=== PATIENT | female | born 2000 | race Caucasian/White ===

== ENCOUNTER 2023-08-16 14:09 | Outpatient (CLI) | payer OTHER, SELFPAY ==
[2023-08-16 19:17] LABS: Hematocrit 40.8 % (37.0-47.0); Hemoglobin 13.1 g/dL (12.0-15.0); Mean Corpuscular HGB Conc 32.1 g/dl (32-36); Mean Corpuscular Hemoglobin 28.9 pg (26-34); Mean Corpuscular Volume 89.9 fl (80-100); Mean Platelet Volume 11.7 fl (7.4-10.4); Platelet Count Result 163 k/mm3 (150-375); Red Blood Count 4.54 M/mm3 (4.2-5.4); Red Cell Distribution Width 12.8 % (11.5-14.5); White Blood Count 2.7 K/mm3 (4.5-10.0)
[2023-08-16 20:33] LABS: Alanine Aminotransferase 10 U/L (6-35); Albumin Level 4.8 g/dL (3.5-5.1); Alkaline Phosphatase 45 U/L (38-126); Anion Gap 11 mmol/L (8-16); Aspartate Amino Transferase 34 U/L (14-36); Bilirubin,Total 0.4 mg/dL (0.2-1.3); Blood Urea Nitrogen 8 mg/dL (7-17); Calcium 9.8 mg/dL (8.4-10.2); Carbon Dioxide 29 mmol/L (22-30); Chloride 99 mmol/L (98-107); Estimated Glomerular Filt Rate > 60; Glucose 88 mg/dL (65-110); Potassium 4.3 mmol/L (3.4-5.0); Sodium 139 mmol/L (137-145)
[2023-08-16 20:52] LABS: Beta HCG Quantitative < 2.39 mIU/ML
== END 2023-08-16 14:10 | disposition home or self-care (01) ==
LOC: ANHGOSHLAB 14:11
PROVIDERS: PCP Family Medicine; Visit Provider Nurse Practitioner
DX: N92.6 Irregular menstruation, unspecified (principal); R53.83 Other fatigue
CPT/HCPCS: 36415; 80053; 84702; 85027

== ENCOUNTER 2025-05-01 15:22 | Outpatient (CLI) | payer OTHER, SELFPAY ==
--- OUTSIDE RECORDS SUMMARY | 2025-05-01 15:26 | XMS_ITS | Clinical Summary ---
Author Organization [facility] Address [address] [place]: Epic Prelude ADT HINA NATARAJAN [address] Care Team Providers Care Maintainer Central Office Name Role Phone Patricia Denny DO Primary Care Provider [phone] Allergies No known active allergies Medications Cetirizine (ZyrTEC) 10 mg Capsule Active ferrous sulfate (Iron, Ferrous Sulfate,) 325 mg (65 mg iron) tablet Take 325 mg by mouth daily. 12/31/2024 Active ascorbic acid, vitamin C, (Vitamin C) 250 mg tablet Take 500 mg by mouth daily. 12/31/2024 Active Active Problems No known active problems Encounters Date Type Department Care Team Description 05/01/2025 3:00 PM CDT Office Visit [facility] Oncology and Hematology - [place] [address] [place] [address] Yoan Telles MD Neutropenia, unspecified type (Primary Dx); Chronic anemia 04/16/2025 External Device Data STL ABSTRACTION Provider, Abstract 04/15/2025 External Device Data STL ABSTRACTION Provider, Abstract 03/18/2025 External Device Data STL ABSTRACTION Provider, Abstract 02/20/2025 External Device Data STL ABSTRACTION Provider, Abstract 02/20/2025 External Device Data STL ABSTRACTION Provider, Abstract 02/19/2025 External Device Data STL ABSTRACTION Provider, Abstract 02/19/2025 External Device Data STL ABSTRACTION Provider, Abstract 02/18/2025 External Device Data STL ABSTRACTION Provider, Abstract from Last 3 Months Immunizations Immunization Administration Dates Next Due (PFIZER)(12 YR UP) COVID-19 VACCINE - EMERGENCY USE AUTHORIZATION, MRNA, [id number](PF) 30 MCG/0.3 ML IM SUSP 01/01/2021,12/11/2020 Family History Medical History Relation Name Comments No Known Problems Father Hypertension Mother Melanoma Mother Breast Cancer Neg Hx Relation Name Status Comments Father Alive Mother Alive Social History Tobacco Use Types Packs/Day Years Used Date Smoking Tobacco: Never Smokeless Tobacco: Never Tobacco Cessation:Counseling Given: Not Answered Alcohol Use Standard Drinks/Week Comments Never 0 (1 standard drink = 0.6 oz pur e alcohol) Comments No Sex and Gender Information Value Date Recorded Sex Assigned at Not on file 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 Gender Identity Not on file Sexual Orientation Not on file Last Filed Vital Signs Vital Sign Reading Time Taken Comments Blood Pressure 131/80 05/01/2025 2:45 PM CDT Pulse 91 05/01/2025 2:45 PM CDT Temperature 36.7 C (98 F) 05/01/2025 2:45 PM CDT Respiratory Rate 14 05/01/2025 2:45 PM CDT Oxygen Saturation 97% 05/01/2025 2:45 PM CDT Inhaled Oxygen Concentration - - Weight 49.7 kg (109 lb 9.6 oz) 05/01/2025 2:45 P M CDT Height 152.4 cm (5') 05/01/2025 2:45 PM CDT Body Mass Index 21.4 05/01/2025 2:45 PM CDT Plan of Treatment Upcoming Encounters Date Type Department Care Team (Late st Contact Info) Description 05/26/2025 4:30 PM CDT Telephone Check Up [facility] Oncology and Hematology - [place] [address] [place] [address] Yoan Telles MD [address] [place] [address] Health Maintenance Due Date Last Done Comments HPV VACCINES (1 - 3-dose series) 2016 DTAP/TDAP/TD VACCINES (1 - Tdap) 2020 HEPATITIS B VACCINES (1 of 3 - 19+ 3-dose series) 2020 CERVICAL CANCER SCREENING 2022 HPV/Cotest (21-29) 2022 PAP SMEAR 2022 COVID-19 Vaccine ( - 2023- season) 06/02/202411/2020, 12/11/2020 Preventative Visit- Commercial 10/02/2024 INFLUENZA VACCINE (#1) 2025 Insurance [employer] OPEN CHOICE PPO [employer] OPEN CHOICE PPO Care Teams Maintainer Central Office Relationship Specialty Start Date End Date Patricia Denny DO [address] [place] [id number] PCP - General Family Practice 12/03/20
--- OUTSIDE RECORDS SUMMARY | 2025-05-01 15:26 | XMS_ITS | Encounter Summary ---
Author Organization [facility] JEREMYJosey Ellis [employer] [facility] Address [address] [place] [address] Care Team Providers Care Drill Sharpener Operator Name Role Phone Patricia Denny DO Primary Care Provider [phone] Reason for Referral * Radiology Services (Routine) - Authorized Specialty Diagnoses / Procedures Referred By Contac t Referred To Contact Diagnoses Neutropenia, unspecified type Procedures US ABDOMEN COMPLETE Yoan Telles MD [email or web address] [place] [address] Phone: tel: fax: Referral ID Status Reason Start Date Expiration Date V isits Requested Visits Authorized [id number] Authorized 05/01/2025 06/01/2026 1 1 Reason for Visit * Reason Comments Establish Care Encounter Details Date Type Department Care Team (Late st Contact Info) Description 05/01/2025 3:00 PM CDT Office Visit [facility] Oncology and Hematology - [place] [address] [address] Yoan Telles MD [email or web address] [place] [address] Neutropenia, unspecified type (Primary Dx); Chronic anemia Social History Tobacco Use Types Packs/Day Years Used Date Smoking Tobacco: Never Smokeless Tobacco: Never Tobacco Cessation:Counseling Given: Not Answered Alcohol Use Standard Drinks/Week Comments Never 0 (1 standard drink = 0.6 oz pur e alcohol) Comments No Sex and Gender Information Value Date Recorded Sex Assigned at Not on file 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 Previous TREATMENT ? Measurable Disease ? Reason for Visit Magy Simms is a 25 y.o. female who was referred for consultation for leukopenia. History of present illness This is a pleasant 25-year-old female who has been in great health except history of seasonal allergies and iron deficiency. She has been taking oral iron once a day. She has been dealing with low white blood cell count for almost 1 year duration. Patient has intermittent lightheadedness and vertigo. Denies any autoimmune disease symptoms including rash and arthralgia. Her weight and appetite stable. Denies any history of liver disease and alcohol consumption. Denies being a vegetarian. Her menstrual bleeding is heavy for the first few days and last for about 5 days duration. She gets frequent flu and sinus infection. She was evaluated by ENT for dizziness and vertigo today as well. Denies any other new complaints. Past Medical History Past Medical History: Diagnosis Date Kidney stones 2020 passes 1 and 1 still in Seasonal allergies Iron deficiency Surgical History Past Surgical History: Procedure Laterality Date HX TYMPANOSTOMY Bilateral 2nd and 7th grade HX WISDOM TEETH EXTRACTION 2019 SC PARTIAL HYMENECTOMY OR REVISION HYMENAL RING N/A 11/28/2023 EXAM UNDER ANESTHESIA, HYMENECTOMY performed by Verónica Huff MD at [facility] OR Medications Current Outpatient Medications Medication Sig Dispense Refill ferrous sulfate (Iron, Ferrous Sulfate,) 325 mg (65 mg iron) tablet Take 325 mg by mouth daily. ascorbic acid, vitamin C, (Vitamin C) 250 mg tablet Take 500 mg by mouth daily. Cetirizine (ZyrTEC) 10 mg Capsule No current facility-administered medications for this visit. Allergies No Known Allergies Immunizations: Immunization History Administered Date(s) Administered ([employer])(12 YR UP) COVID-19 VACCINE - EMERGENCY USE AUTHORIZATION, MRNA, [id number](PF) 30 MCG/0.3 MLIM SUSP 12/11/2020, 01/01/2021 Family History Family History Problem Relation Name Age of Onset No Known Problems Father Hypertension Mother Melanoma Mother Breast Cancer Neg Hx Social History Social History Tobacco Use Smoking status: Never Smokeless tobacco: Never Substance Use Topics Alcohol use: Never Review of Systems Constitutional: Patient did not mention fever; no night sweats; no anorexia; no weight loss; no fatique NEENT: Patient did not mention headache; no change in vision; no change in hearing; no sore throat;no dysphagia Respiratory: Patient did not mention shortness of breath; no pleuritic chest pain; no cough; no hemoptysis Cardiac: Patient did not mention cardiac-like chest pain; no palpitations; no orthopnea; no PND; noDOE Breasts: Patient did not mention tenderness; no masses GI: Patient did not mention abdominal pain; no nausea; no vomiting; no diarrhea; no hematochezia; no melena : Patient did not mention dysuria; no frequency; no hesitancy; no hematuria GROUND MIXER: Musculosketetal: Patient did not mention bone pain; no arthralgia; no joint swelling; no myalgia; Skin: Patient did not mention pruritis; no rash; no petechiae; no ecchymoses Endocrine: Patient did not mention polydipsia; no polyuria; no unusual weight gain Neuro: Patient did not mention headache; no change in vision; no sensory changes; no muscle weakness; no confusion; no seizures, complain of intermittent lightheadedness and vertigo Psych: Patient did not mention anxiety; no depression; Physical Exam Vitals: As per nursing note Constitutional: Well developed, well nourished, no acute distress, non-toxic appearance Teeth and gum. No signs of infection or swelling. Eyes: PERRL, conjunctiva normal HEENT: Atraumatic, external ears normal, nose normal, oropharynx moist, no pharyngeal exudates. no sinus tenderness Neck- normal range of motion, no tenderness, supple Respiratory: No respiratory distress, normal breath sounds, no rales, no wheezing Cardiovascular: Normal rate, normal rhythm, no murmurs, no gallops, no rubs GI: Soft, nondistended, normal bowel sounds, nontender, no splenomegaly, no hepatomegaly, no mass, no rebound, no guarding : No costovertebral angle tenderness Musculoskeletal: No edema, no tenderness, no deformities. Back- no tenderness Integument: Well hydrated, no rash, Digits and nails inspection normal Lymphatic: No lymphadenopathy noted Neurologic: Alert & oriented x 3, CN 2-12 normal, normal motor function, normal sensory function, no focal deficits noted Psychiatric: Speech and behavior appropriate ? labs No results found for this or any previous visit (from the past 24 hours). Labs from December 2024 showed WBC 3.0 hemoglobin 13 MCV 91 platelets 228,000 neutrophil 41% lymphocyte 46% iron 89 saturation 29 ferritin 16 Pathology ? Imaging & Other Studies Performance Status? Assessment / Plan: ? Leukopenia. Patient is a pleasant 25-year-old female with history of seasonal allergies, iron deficiency, kidney stone and intermittent lightheadedness and dizziness who has been dealing with leukopenia for 1 year duration. She denies any history of autoimmune disease. Denies any rash and diarrhea. She gets frequent sinus infection and flu like symptoms. She denies any history of liver disease. Weight and appetite stable. I have reviewed the labs and discussed the differential diagnosis of leukopenia that includes nutritional deficiencies, autoimmune leukopenia, drug-induced leukopenia, infection related leukopenia, liver and spleen disorders, bone marrow disorders and possibilityof benign essential leukopenia. I will order the workup that will include CBC with differential, CMP, DENNIS, flow cytometric analysis for leukemia, iron profile, B12 and folic acid level and abdominal ultrasound. I will see her back in 2 weeks and discuss the findings and further recommendations. I have answered all of the questions the patient satisfaction. Iron deficiency without anemia. She is on iron replacement. Lightheadedness and vertigo. Patient was seen by the ENT and will follow-up with them. Thank you very much for allowing me to participate in Magy Simms's evaluation and management. Please feel free to contact if I can be of any further assistance in your patient???s care requiring hematology or oncology evaluation. Sincerely, ? ? Yoan Telles M.D. cell TOBACCO COUNSELING She is not a tobacco/nicotine user. Yoan Telles MD ,05/01/2025 3:16 PM ? Total time spent 60 minutes, two third of the total time spent counseling patient [id number]. CC:?Patricia Denny DO documented in this encounter Plan of Treatment Upcoming Encounters Date Type Department Care Team (Late st Contact Info) Description 05/26/2025 4:30 PM CDT Telephone Check Up [facility] Oncology and Hematology - [place] [address] [facility] [address] [place] [address] Yoan Telles MD [address] [facility] [address] [place] [address] Scheduled Orders Name Type Priority Associated Diagnoses Orde r Schedule CBC WITH DIFFERENTIAL Lab Stat Chronic anemia Expected: 05/01/2025, Expires: 05/01/2026 DENNIS SCREEN W/REFLEX Lab Routine Neutropenia, unspecified type Expected: 05/01/2025, Expires: 05/01/2026 COMPREHENSIVE METABOLIC PANEL Lab Stat Chronic anemia Expected: 05/01/2025, Expires: 05/01/2026 FLOW CYTOMETRY PANEL Lab Routine Neutropenia, unspecified type Expected: 05/01/2025, Expires: 05/01/2026 IRON, TIBC, AND PERCENT SATURATION Lab Routine Chronic anemia Expected: 05/01/2025, Expires: 05/01/2026 VITAMIN B12 AND FOLATE Lab Routine Chronic anemia Expected: 05/01/2025, Expires: 05/01/2026 FERRITIN Lab Routine Chronic anemia Expected: 05/01/2025, Expires: 05/01/2026 US ABDOMEN COMPLETE Imaging Routine Neutropenia, unspecified type 1 Occurrences starting 05/01/2025 until 05/01/2026 documented as of this encounter Visit Diagnoses Diagnosis Neutropenia, unspecified type- Primary Chronic anemia Anemia, unspecified documented in this encounter Care Teams Drill Sharpener Operator Relationship Specialty Start Date End Date Patricia Denny DO [address] [place] [address] PCP - General Family Practice 12/03/20 documented as of this encounter
--- NOTE | 2025-05-01 15:36 | CY_PTH ---
PATIENT: Magy Simms LOC: [facility] U#:[id number] AGE/SX: 25/F ROOM: RE05/01/[address]: Yoan Telles MD : [id number] BED: DIS: 05/01/2025 SPEC #: [id number] RECD: 05/02/25 06:52 STATUS: BEATRIZ REQ #: [id number] CINTHIA: 05/01/25 15:[address]: Yoan Telles DEPT: [facility] Cytology RECD BY: Mercedes Coronel ENTERED: 05/02/25 06:52 SP TYPE: Cytology OTHR DR: Patricia Denny DO Tissues: A - Flow Procedures: Flow Cytometry
[2025-05-01 15:38] LABS: Hematocrit 40.2 % (37.0-47.0); Hemoglobin 13.5 g/dL (12.0-15.0); Immature Granulocyte Percent A 0.2 % (0-0.5); Lymphocytes Absolute Auto 1.69 K/mm3 (0.9-3.2); Mean Corpuscular HGB Conc 33.6 g/dl (32-36); Mean Corpuscular Hemoglobin 30.2 pg (26-34); Mean Corpuscular Volume 89.9 fl (80-100); Nucleated Red Blood Cells Absolute Auto 0.000 K/mm3 (0.0-0.012); Nucleated Red Blood Cells Perc 0.0 % (0.0-0.2); Platelet Count Result 220 k/mm3 (150-375); Red Blood Count 4.47 M/mm3 (4.2-5.4); White Blood Count 6.1 K/mm3 (4.5-10.0)
[2025-05-01 16:27] LABS: Alanine Aminotransferase 12 U/L (6-35); Albumin Level 5.0 g/dL (3.5-5.1); Alkaline Phosphatase 66 U/L (38-126); Anion Gap 9 mmol/L (4-12); Aspartate Amino Transferase 44 U/L (14-36); Bilirubin,Total 0.5 mg/dL (0.2-1.3); Blood Urea Nitrogen 10 mg/dL (7-17); Calcium 10.2 mg/dL (8.4-10.2); Carbon Dioxide 26 mmol/L (22-30); Chloride 100 mmol/L (98-107); Estimated Glomerular Filt Rate > 60; Glucose 97 mg/dL (65-110); Iron 101 ug/dL (37-170); Potassium 4.2 mmol/L (3.4-5.0); Sodium 135 mmol/L (137-145); Total Protein 9.1 g/dL (6.3-8.2)
[2025-05-01 16:37] LABS: Percent Iron Saturation 33 % (20-50)
[2025-05-01 17:10] LABS: Ferritin 34.30 ng/mL (6.24-137)
[2025-05-01 17:40] LABS: Vitamin B12 376.0 pg/mL (239-931)
[2025-05-05 07:07] LABS: ANA by IFA Rfx Titer/Pattern Negative (.)
== END 2025-05-01 15:23 | disposition home or self-care (01) ==
LOC: ANHLAB 15:23
PROVIDERS: PCP Family Medicine; Visit Provider Internal Medicine Hematology & Oncology
DX: D70.9 Neutropenia, unspecified (principal); D64.9 Anemia, unspecified
CPT/HCPCS: 36415; 80053; 82607; 82728; 82746; 83540; 83550; 85025; 86038; 88184

== ENCOUNTER 2025-05-19 07:50 | Outpatient (CLI) | payer OTHER, SELFPAY ==
--- NOTE | ~2025-05-19 | US_ITS ---
Abdominal Sonogram: Real-time sonographic imaging of the abdomen was performed. Clinical History: Neutropenia Findings: The liver appears normal with no evidence of mass lesion or bile duct dilatation. Main por margie vein demonstrates normal direction of flow. The spleen is normal in size without evidence of foca l lesion. The gallbladder is well distended, and appears normal with no evidence of gallstone or wal l thickening. The common bile duct measures 2 mm. The visualized pancreas, aorta, and IVC are unrema rkable. The right kidney measures 10.4 cm in length and the left kidney measures 9.9 cm. There is n o hydronephrosis or renal calculus. Impression: Unremarkable abdominal ultrasound. Reviewed, dictated and finalized at location M. Impression: Unremarkable abdominal ultrasound.
== END 2025-05-19 07:51 | disposition home or self-care (01) ==
PROVIDERS: PCP Family Medicine; Visit Provider Internal Medicine Hematology & Oncology
DX: D70.9 Neutropenia, unspecified (principal)
CPT/HCPCS: 76700

== ENCOUNTER 2025-09-24 09:07 | Outpatient (CLI) | payer OTHER, SELFPAY ==
--- NOTE | ~2025-09-24 | CT_ITS ---
EXAMINATION: CT brain wo con DATE: 09/24/2025 09:20 INDICATION: Benign paroxysmal vertigo, unspecified ear. TECHNIQUE: Computed tomography (CT) of the head was performed without intravenous contrast. The mA was adjusted according to patient size. Iterative reconstruction technique was employed. The dose-length product was 529.67 mGy-cm. COMPARISON: None FINDINGS: There is no intracranial hemorrhage, acute infarction, or abnormal intracranial mass lesion. The ventricles are normal in size. The paranasal sinuses are clear. The mastoid air cells are normal. IMPRESSION: 1. Normal brain. Reviewed, dictated and finalized at location E. F CREW SCHEDULER IMPRESSION: 1. Normal brain.
--- OUTSIDE RECORDS SUMMARY | 2025-09-24 09:11 | XMS_ITS | Clinical Summary ---
Author Organization [facility] Address [address] [facility] [place] [address] Care Team Providers Care Machine Pack Assembler Name Role Phone Patricia Denny DO Primary Care Provider [phone] Source Comments [facility],non-owned Affiliates and Associated Physician Practices is amultiple site organization consisting of ambulatory clinics and hospital sitesin [place], [place], [place] and [place]. This disclosure is being madepursuant to the Care Everywhere program and may not contain all information available regarding this patient. Last updated 18.[facility] Health Encounters Date Type Department Care Team Description 07/24/2025 Travel from Last 3 Months Social History Tobacco Use Types Packs/Day Years Used Date Smoking Tobacco: Never Assessed Comments Unknown Sex and Gender Information Value Date Recorded Sex Assigned at Not on file Legal Sex Female 9:24 AM CDT Gender Identity Not on file Sexual Orientation Not on file Plan of Treatment Upcoming Encounters Date Type Department Care Team (Late st Contact Info) Description 10/01/2025 11:00 AM METAL WASHING MACHINE OPERATOR Office Visit [facility] - Neurology [address] [place] [address], [place] [phone] Jesus Ken, INVESTMENT EXECUTIVE-AERODYNAMICS ENGINEER [address] [place] [address] [place] [address] Health Maintenance Due Date Last Done Comments HIV SCREENING 2016 HPV VACCINE (1 - 3-dose series) 2016 CHLAMYDIA/GONORRHEA SCREENING 2017 HEPATITIS C SCREENING 02/26/2019 DTAP/TDAP/TD VACCINES (1 - Tdap) 2020 HEPATITIS B VACCINE (1 of 3 - 19+ 3-dose series) 2020 PAP SMEAR 2022 DEPRESSION SCREENING 10/02/2024 COVID-19 VACCINE (1 - 2024-2 6 season) 2025 INFLUENZA VACCINE (#1) 2025 ZOSTER VACCINE (1 of 2) 2051 HIB VACCINE Aged Out No longer eligi ble based on patient's age to complete this topic MENINGOCOCCAL (Group B) VACC INE SHARED DECISION-MAKING Aged Out No longer eligibl e based on patient's age to complete this topic MENINGOCOCCAL GROUPS A/C/Y/W VACCINE Aged Out No longer eligible b ased on patient's age to complete this topic PNEUMOCOCCAL VACCINE Aged Out No long er eligible based on patient's age to complete this topic Insurance AETNA Care Teams Machine Pack Assembler Relationship Specialty Start Date End Date Patricia Denny DO [address] [place] [address] PCP - General Family Medicine 07/24/25
--- OUTSIDE RECORDS SUMMARY | 2025-09-24 09:11 | XMS_ITS | Clinical Summary ---
Author Organization [facility] Address [address] Attn: [place] [address] Care Team Providers Care Supervisor Elementary Education Name Role Phone Patricia Denny DO Primary Care Provider [phone] Allergies No known active allergies Medications Cetirizine (ZyrTEC) 10 mg Capsule Active ferrous sulfate (Iron, Ferrous Sulfate,) 325 mg (65 mg iron) tablet Take 325 mg by mouth daily. 12/31/2024 Active ascorbic acid, vitamin C, (Vitamin C) 250 mg tablet Take 500 mg by mouth daily. 12/31/2024 Active magnesium OXIDE 250 mg magnesium Tablet Take 200 mg by mouth daily. Active Active Problems No known active problems Encounters Date Type Department Care Team Description 09/16/2025 External Device Data STL ABSTRACTION Provider, Abstract 09/08/2025 3:30 PM NETWORK ENGINEERING ADVISOR Office Visit [facility] Oncology and Hematology - [place] [address] [place] [id number] Yoan Telles MD Neutropenia, unspecified type (Primary Dx) 09/02/2025 Orders Only Initial Department [address] JSOEPH: [place] [address] Provider, Historical Neutropenia, unspecified type 07/22/2025 External Device Data STL ABSTRACTION Provider, Abstract from Last 3 Months Immunizations Immunization Administration Dates Next Due (PFIZER)(12 YR UP) COVID-19 VACCINE - EMERGENCY USE AUTHORIZATION, MRNA, [id number](PF) 30 MCG/0.3 ML IM SUSP 01/01/2021,12/11/2020 Family [...] drink = 0.6 oz pur e alcohol) Feeling Safe Answer Date Recorded Are you in a relationship wi th someone who hurts you emotionally and/or physically? No 11/28/2023 Comments No Sex and Gender Information Value Date Recorded Sex Assigned at Not on file Legal Sex Female 11:28 PM NETWORK ENGINEERING ADVISOR Gender Identity Not on file Sexual Orientation Not on file Last Filed Vital Signs Vital Sign Reading Time Taken Comments Blood Pressure 115/70 09/08/2025 3:26 PM NETWORK ENGINEERING ADVISOR Pulse 86 09/08/2025 3:26 PM NETWORK ENGINEERING ADVISOR Temperature 36.7 C (98.1 F) 09/08/2025 3:26 PM NETWORK ENGINEERING ADVISOR Respiratory Rate 14 05/01/2025 2:45 PM CDT Oxygen Saturation 98% 09/08/2025 3:26 PM NETWORK ENGINEERING ADVISOR Inhaled Oxygen Concentration - - Weight 49.4 kg (108 lb 12.8 oz) 09/08/2025 3:26 PM NETWORK ENGINEERING ADVISOR Height 152.4 cm (5') 05/01/2025 2:45 PM CDT Body Mass Index 21.25 05/01/2025 2:45 PM CDT Plan of Treatment Health Maintenance Due Date Last Done Comments HPV VACCINES (1 - 3-dose series) 2016 DTAP/TDAP/TD VACCINES (1 - Tdap) 2020 HEPATITIS B VACCINES (1 of 3 - 19+ 3-dose series) 2020 CERVICAL CANCER SCREENING 2022 HPV/Cotest (21-29) 2022 PAP SMEAR 2022 INFLUENZA VACCINE (#1) 2025 COVID-19 Vaccine ( - season) 06/02/202511/2020, 12/11/2020 Procedures Procedure Name Priority Date/Time Associated Diagnosis Comments VITAMIN B12 AND FOLATE Routine 11:13 AM NETWORK ENGINEERING ADVISOR Neutropenia, unspecified type COMPREHENSIVE METABOLIC PANEL Routine 09/02/2025 11:13 AM NETWORK ENGINEERING ADVISOR CBC WITH DIFFERENTIAL Routine 09/02/2025 11:13 AM NETWORK ENGINEERING ADVISOR from Last 3 Months Results * VITAMIN B12 AND FOLATE (09/02/2025 11:13 AM NETWORK ENGINEERING ADVISOR) Pathologist [facility] [place] VITAMIN B12 600 200 - 1100 pg/mL [facility] FOLATE, SERUM 14.0 ng/mL [facility] Comment: Reference Range Low: <3.4 Borderline: 3.4-5.4 Normal: >5.4 FASTING:YES Test Performed at: [facility] [address] [place] [phone] Vicki Mortensen MD, PhD Blood 09/02/2025 11:1 3 AM NETWORK ENGINEERING ADVISOR 09/02/2025 11:14 AM NETWORK ENGINEERING ADVISOR us Yoan Telles MD CHEMISTRY ORDERABLES Final Resu lt [facility] [phone] [facility] [address] [place] [phone] * CBC WITH DIFFERENTIAL (09/02/2025 11:13 AM NETWORK ENGINEERING ADVISOR) Pathologist [facility] [place] WBC 3.9 3.8 - 10.8 Thousand/u L [facility] RBC 4.69 3.80 - 5.10 Million/uL [facility] HEMOGLOBIN 14.3 11.7 - 15.5 g/dL [facility] HEMATOCRIT 43.2 35.9 - 46.0 % [facility] MCV 92.1 81.4 - 101.7 fL [facility] MCH 30.5 27.0 - 33.0 pg [facility] MCHC 33.1 31.6 - 35.4 g/dL [facility] Comment: For adults, a slight decrease in the calculated MCHC value (in the range of 30 to 32 g/dL) is most likely not clinically significant; however, it should be interpreted with caution in correlation with other red cell parameters and the patient's clinical condition. RDW 11.8 11.0 - 15.0 % [facility] PLATELETS 211 140 - 400 Thousand/u L [facility] MPV 11.3 7.5 - 12.5 fL [facility] NEUTROPHIL ABSOLUTE 1,845 1,500 - 7,800 cells/uL [facility] LYMPHOCYTE ABSOLUTE 1,677 850 - 3,900 cells/uL [facility] MONOCYTE ABSOLUTE 308 200 - 950 cells/uL [facility] EOSINOPHIL ABSOLUTE 39 15 - 500 cells/uL [facility] BASOPHILS ABSOLUTE 31 0 - 200 cells/uL [facility] NEUTROPHIL 47.3 % [facility] LYMPHOCYTES 43.0 % [facility] MONOCYTE 7.9 % [facility] EOSINOPHILS 1.0 % [facility] BASOPHILS 0.8 % [facility] Comment: FASTING:YES Test Performed at: [facility] [address] [place] [address] Vicki Mortensen MD, PhD 09/02/2025 11:1 3 AM NETWORK ENGINEERING ADVISOR 09/02/2025 11:14 AM NETWORK ENGINEERING ADVISOR us Yoan Telles MD HEMATOLOGY ORDERABLES Final Res ult [facility] [phone] [facility] [address] [place] [address] * (ABNORMAL) COMPREHENSIVE METABOLIC PANEL (09/02/2025 11:13 AM NETWORK ENGINEERING ADVISOR) GLUCOSE 89 65 - 99 mg/dL [facility] Comment: Fasting reference interval BUN 17 7 - 25 mg/dL [facility] CREATININE 0.72 0.50 - 0.96 mg/dL [facility] GFR 120 > OR = 60 mL/min/1. 73m2 [facility] BUN/CREAT RATIO SEE NOTE: 6 - 22 (calc) [facility] Comment: Not Reported: BUN and Creatinine are within reference range. SODIUM 139 135 - 146 mmol/L [facility] POTASSIUM 4.3 3.5 - 5.3 mmol/L [facility] CHLORIDE 103 98 - 110 mmol/L [facility] CO2 27 20 - 32 mmol/L [facility] CALCIUM 9.8 8.6 - 10.2 mg/dL [facility] TOTAL PROTEIN 8.3(H) 6.1 - 8.1 g/dL [facility] ALBUMIN 4.9 3.6 - 5.1 g/dL [facility] GLOBULIN 3.4 1.9 - 3.7 g/dL (calc) [facility] ALBUMIN/GLOBULIN RATIO 1.4 1.0 - 2.5 (calc) [facility] BILIRUBIN TOTAL 0.4 0.2 - 1.2 mg/dL [facility] ALKALINE PHOSPHATASE 47 31 - 125 U/L [facility] AST 16 10 - 30 U/L [facility] ALT 8 6 - 29 U/L [facility] Comment: FASTING:YES Test Performed at: [facility] [address] [place] [address] Vicki Mortensen MD, PhD 09/02/2025 11:1 3 AM NETWORK ENGINEERING ADVISOR 09/02/2025 11:14 AM NETWORK ENGINEERING ADVISOR us Yoan Telles MD CHEMISTRY ORDERABLES Final Resu lt [facility] [phone] [facility] [address] [place] [address] from Last 3 Months Insurance [employer] NAP [facility] Care Teams Supervisor Elementary Education Relationship Specialty Start Date End Date Patricia Denny DO [address] [place] [address] PCP - General Family Practice 12/03/20
== END 2025-09-24 09:08 | disposition home or self-care (01) ==
PROVIDERS: PCP Family Medicine; Visit Provider Family Medicine
DX: H81.10 Benign paroxysmal vertigo, unspecified ear (principal); G43.809 Other migraine, not intractable, without status migrainosus
CPT/HCPCS: 70450